=== PATIENT | female | born 1970 | race Caucasian/White ===

== ENCOUNTER → 2019-03-03 | Outpatient (CLI) | payer OTHER ==
[~2019-03-03] MED LIST: GLUCOPHAGE500 MG/TAB PO; PRENATAL VITAMI1 TA5 PO; SYNTHROID0.075 MG/T PO; WOMEN'S DAILY1 TAB PO
== END ==
LOC: MC.RAD 07:10
DX: C50.211 Malignant neoplasm of upper-inner quadrant of right female breast (principal); Z90.11 Acquired absence of right breast and nipple

== ENCOUNTER → 2019-03-04 | Outpatient (CLI) | payer OTHER | LOC: MC.RAD 08:34 | DX: C50.211 Malignant neoplasm of upper-inner quadrant of right female breast (principal); Z90.11 Acquired absence of right breast and nipple; Z98.82 Breast implant status | CPT/HCPCS: 30634 ==

== ENCOUNTER → 2022-05-29 | Outpatient (CLI) | payer OTHER ==
[2022-05-29 08:15] LABS: BASO # 0.1 K/mm3 (0.0-0.2); BASO % 1.5 % (0.0-2.0); EOS # 0.2 K/mm3 (0.0-0.7); EOS % 3.5 % (0.0-4.0); GRAN # 2.3 K/mm3 (1.4-6.5); GRAN % 50.6 % (42.2-75.2); HEMATOCRIT 37.8 % (37.0-47.0); HEMOGLOBIN 12.5 g/dl (12.5-16.0); LYMPH # 1.7 K/mm3 (1.2-3.4); LYMPH % 37.6 % (20.0-51.0); MEAN CELL VOLUME 91 fl (80.0-100.0); MEAN CORPUSCULAR HEMOGLOBIN 30 pg (27-31); MEAN CORPUSCULAR HGB CONC 33 g/dl (33.0-37.0); MEAN PLATELET VOLUME 9.5 fl (7.4-10.4); MONO # 0.3 K/mm3 (0.1-0.6); MONO % 6.6 % (1.7-9.3); PLATELET COUNT 252 K/mm3 (130-400); RED BLOOD COUNT 4.14 M/mm3 (4.10-5.30); REDCELL DISTRIBUTION WIDTH-CV 11.5 % (11.5-14.5)
[2022-05-29 08:17] LABS: URINE APPEARANCE Clear (CLEAR/HAZY); URINE BLOOD Negative (NEGATIVE); URINE COLOR Yellow (YELLOW); URINE GLUCOSE Negative (NEGATIVE); URINE KETONE Negative (NEGATIVE); URINE NITRATE Negative (NEGATIVE); URINE PROTEIN(semi-quant) Negative (NEGATIVE); URINE UROBILINOGEN 0.2 E.U/dL (0.2-1.0)
[2022-05-29 08:21] LABS: COLLECTION METHOD CLEAN CATCH
[2022-05-29 08:23] LABS: MUCOUS Present (NOT PRESENT); SQUAMOUS EPITHELIAL 0-2 /hpf (0-10); URINE BACTERIA None Seen /hpf (NONE SEEN); URINE RBC None Seen /hpf (0-2)
[2022-05-29 08:33] LABS: ALBUMIN 3.9 gm/dL (3.5-5.0); BILIRUBIN,TOTAL 0.5 mg/dL (0.2-1.2); CALCIUM 9.6 mg/dL (8.4-10.2); CREATININE, serum 1.14 mg/dL (0.57-1.11); POTASSIUM 4.5 mmol/L (3.5-4.5); TOTAL PROTEIN 6.9 gm/dL (6.2-8.1)
== END ==
LOC: COL.LAB 07:45
PROVIDERS: Family Medicine
DX: Z01.818 Encounter for other preprocedural examination (principal)

== ENCOUNTER 2022-06-05 12:27 | Day surgery (SDC) | payer OTHER ==
[~2022-06-05] VITALS: Ht 165.1 cm; Wt 78.3 kg
[2022-06-05] VITALS (8 sets, daily range): BP systolic 88–114; BP diastolic 39–75; PULSE 53–86; TEMP 97.3–98.2
[~2022-06-05 12:27] MED LIST changes: +MOTRIN 800800 MG/TAB PO; +PERCOCET 325 MG1 TA2 PO
[2022-06-05] MEDS ORDERED: PRINIVIL40 MG PO (14:15)
[2022-06-05] MEDS ORDERED: MASON NATURAL2000 IU PO (14:15)
[2022-06-05] MEDS ORDERED: ASPIRIN 81M81 MG/TA2 PO (14:16)
--- NOTE | 2022-06-05 16:45 | NUR ---
Pt arrived on unit from PACU. Report received. Plan of care reviewed with pt. Oriented to room, bed and call light within reach.
[2022-06-06] VITALS: BP 90/47; PULSE 60; TEMP 98.1
[2022-06-06 05:35] VITALS: BP 90/58; PULSE 69; TEMP 98.7
[2022-06-06 07:30] VITALS: BP 93/59; PULSE 66; TEMP 98.2
--- NOTE | 2022-06-06 09:23 | NUR ---
Initial visit; Patient thanked Lead Java Programmer for looking in on her and offering Spiritual Care. Patient stated she was "ok." Lead Java Programmer wished her well.
--- NOTE | 2022-06-06 11:45 | NUR ---
DISCHARGE INSTRUCTIONS REVIEWED WITH PT REGARDING FOLLOW-UP, PAIN MANAGEMENT, MEDICATIONS, WOUND CARE AND ACTIVITY RESTRICTION. QUESTIONS INVITED AND ANSWERED. PT ENCOURAGED TO CLOSELY MONITOR BP PRIOR TO TAKING BP MEDICATION AND DISCUSS WITH PCP. PT VERBALIZES UNDERSTANDING, DISCHARGED HOME, AMBULATES OUT OF FACILITY ACCOMPANIED BY STAFF AND SPOUSE.
== END 2022-06-06 11:45 | disposition home or self-care (01) ==
LOC: SDCO 12:27 → OB 16:57 → SDCO 06-06 11:45
DX: N88.8 Other specified noninflammatory disorders of cervix uteri (principal); N83.291 Other ovarian cyst, right side; N94.89 Other specified conditions associated with female genital organs and menstrual cycle
CPT/HCPCS: OP; A4314; J0690; J1170; J1885; J2370; J2405; J2710; J3010; J7120